=== PATIENT | male | born 1940 | race African-American/Black ===

== ENCOUNTER 2022-05-03 19:13 | Emergency (ER) | payer MEDICARE, OTHER ==
[2022-05-03] MEDS ORDERED: Sterile Water 10 ML VIAL IVP SCH (20:15)
[2022-05-03] MEDS ORDERED: Activase 2 MG VIAL CATH SCH (20:15)
== END 2022-05-03 21:38 | disposition home or self-care (01) ==
LOC: ERS 19:13
DX: T82.898A Other specified complication of vascular prosthetic devices, implants and grafts, initial encounter (principal); I10 Essential (primary) hypertension; E78.5 Hyperlipidemia, unspecified
CPT/HCPCS: 96374; J2997

== ENCOUNTER 2022-05-06 00:34 | Emergency (ER) | payer MEDICARE, OTHER ==
[2022-05-06 01:37] LABS: #Eosinphils 0.5 thou/uL (0.0-0.7); #Lymphocytes 0.4 thou/uL (1.20-3.40); #Monocytes 0.4 thou/uL (0.11-0.59); #Neutrophils 2.4 thou/uL (1.40-6.50); %Basophils 0.3 % (0.0-1.0); %Eosinophils 14.4 % (0.0-10.0); %Lymphocytes 11.7 % (21.0-51.0); %Monocytes 11.5 % (0.0-10.0); %Neutrophils 62.1 % (42.0-75.0); Hemoglobin 10.9 g/dL (14.0-18.0); Mean Corpuscular HGB CONC 33.8 g/dL (32.0-36.0); Mean Corpuscular Hemoglobin 27.7 pg (27.0-31.0); Mean Corpuscular Volume 81.8 fl (78.0-98.0); Mean Platelet Volume 7.9 fL (7.4-10.4); Platelet Count 178 10x3/uL (130-400); RBC Distribution Width 13.9 % (11.5-14.5); Red Blood Cell (RBC) Count 3.93 mill/uL (4.70-6.10); White Blood Cell (WBC) Count 3.8 10x3/uL (4.8-10.8)
[2022-05-06 01:58] LABS: ALT (SGPT) 17 U/L (8-55); AST (SGOT) 18 U/L (5-34); Albumin 3.9 g/dL (3.4-4.8); Alkaline Phosphatase 110 U/L (40-110); Anion Gap 13 mmol/L (10-20); BUN (Urea Nitrogen) 20 mg/dL (8.4-25.7); Bilirubin, Total 0.7 mg/dL (0.2-1.2); Calc. Creatinine Clearance 0 mL/min (70-130); Calcium 8.6 mg/dL (7.8-10.44); Carbon Dioxide 23 mmol/L (23-31); Chloride 106 mmol/L (98-107); Estimated GFR 59; Globulin 2.7 g/dL (2.4-3.5); Glucose 109 mg/dL (83-110); Potassium 3.7 mmol/L (3.5-5.1); Protein, Total 6.6 g/dL (5.8-8.1); Sodium 138 mmol/L (136-145)
[2022-05-06 02:14] LABS: SARS-CoV-2 NAA Rapid Test Not Detected (NotDetected)
[2022-05-06 02:59] LABS: Bacteria/HPF None Seen HPF (None Seen); Bilirubin Negative (Negative); Blood, Urine Negative (Negative); Clarity Clear (Clear); Glucose, Urine (Dipstick) Normal (Negative); Ketone, Urine Negative (Negative); Leukocyte Negative Leu/uL (Negative); Nitrite Negative (Negative); Protein, Urine (Dipstick) 30 mg/dL (Neg-Trace); RBC/HPF 0-3 HPF (0-3); Squamous Epithelial 0-3 HPF (0-3); Urobilinogen Normal mg/dL (Less than 2); WBC/HPF 0-3 HPF (0-3)
[2022-05-06] MEDS ORDERED: Ampicillin 2 GM VIAL ONE ×3 (03:50→14:21)
[2022-05-06] MEDS ORDERED: cefTRIAXone\\ROCEPHIN 2 GM VIAL ONE (08:37)
[2022-05-06] MEDS ORDERED: Acetaminophen 500 MG TAB ONE (15:43)
== END 2022-05-06 18:10 | disposition home or self-care (01) ==
LOC: ERS 00:34
DX: R78.81 Bacteremia (principal); R50.9 Fever, unspecified; E78.5 Hyperlipidemia, unspecified; I10 Essential (primary) hypertension; D72.819 Decreased white blood cell count, unspecified; Z79.899 Other long term (current) drug therapy; Z79.01 Long term (current) use of anticoagulants; Z20.822 Contact with and (suspected) exposure to COVID-19
CPT/HCPCS: 0240U; 71045; 80053; 83605; 85025; 87040; 87086; 93005; 36415; 81003; 81015; 96365; 96366; 96367; J0290; J0696